=== PATIENT | female | born 1930 | race Caucasian/White ===

== ENCOUNTER 2022-07-22 14:32 | Outpatient (CLI) | payer MEDICARE, BC | END 2022-07-22 14:33 | disposition home or self-care (01) | LOC: BICMAMMO 14:32 | PROVIDERS: ATTEND Internal Medicine Hematology & Oncology | DX: Z13.820 Encounter for screening for osteoporosis (principal); C50.112 Malignant neoplasm of central portion of left female breast; M85.89 Other specified disorders of bone density and structure, multiple sites | CPT/HCPCS: 77066; 77080; G0279 ==